=== PATIENT | female | born 1955 | race Caucasian/White ===

== ENCOUNTER → 2016-05-17 | Outpatient (CLI) | payer BC | END | disposition home or self-care (01) | LOC: C.PAPS 09:32 | PROVIDERS: ATTEND Obstetrics & Gynecology | DX: Z01.419 Encounter for gynecological examination (general) (routine) without abnormal findings (principal) ==

== ENCOUNTER → 2016-05-17 | Outpatient (CLI) | payer BC | END | disposition home or self-care (01) | LOC: C.LAB1850 15:42 | PROVIDERS: ATTEND Obstetrics & Gynecology | DX: E55.9 Vitamin D deficiency, unspecified (principal) ==

== ENCOUNTER → 2016-06-15 | Outpatient (CLI) | payer BC ==
--- NOTE | 2016-06-16 13:18 | MAMMOGRAPHY REPORT ---
BILATERAL DIGITAL SCREENING MAMMOGRAM TOMOSYNTHESIS WITH CAD: 06/15/2016 CLINICAL HISTORY: Routine screening. Patient has no complaints. TECHNIQUE: Breast tomosynthesis in addition to standard 2D mammography was performed. Current study was also evaluated with a Computer Aided Detection (CAD) system. COMPARISON: Comparison is made to exams dated: 05/16/2015 mammogram, 07/10/2014 mammogram, 07/09/2013 [facility] mogram, 05/18/2012 mammogram, and 05/17/2011 mammogram. BREAST COMPOSITION: The tissue of both breasts is heterogeneously dense, which may obscure small ma sses. FINDINGS: There is an incompletely visualized 5 mm nodular asymmetry in the far posterior left [address], only seen on the MLO view. The corresponding tomosynthesis images do not definitely differentia te between a possible mass versus overlapping tissue. Further evaluation with spot compression nika synthesis views and possibly ultrasound are recommended. There are scattered benign-appearing rounded and rim calcifications and mild vascular calcifications in the breasts. Stable asymmetry in the inferior right breast. No other suspicious mass, [employer] architect ural distortion or cluster of microcalcifications is seen. IMPRESSION: ACR BI-RADS CATEGORY 0: INCOMPLETE EVALUATION: NEED ADDITIONAL IMAGING EVALUATION The incompletely visualized 5 mm nodular asymmetry in the far posterior, inferior left breast needs additional evaluation. The patient will be called to schedule an appointment. Approximately 10% of breast cancers are not detected with mammography. A negative mammographic repor t should not delay biopsy if a clinically suggestive mass is present. Makenzie Bolden M.D. ay/:06/15/2016 16:49:51 Billing Coordinator: Winter ADAN(Saloni)(Rosaura), [facility] letter sent: Addl Imaging 0 BI-RADS Code: ACR BI-RADS Category 0: Incomplete Evaluation: Need Additional Imaging Evaluation
== END | disposition home or self-care (01) ==
LOC: C.MAMM 13:06
PROVIDERS: ATTEND Obstetrics & Gynecology
DX: Z12.31 Encounter for screening mammogram for malignant neoplasm of breast (principal); R92.8 Other abnormal and inconclusive findings on diagnostic imaging of breast

== ENCOUNTER → 2016-06-24 | Outpatient (CLI) | payer BC ==
--- NOTE | 2016-06-24 13:07 | MAMMOGRAPHY REPORT ---
UNILATERAL LEFT DIGITAL DIAGNOSTIC MAMMOGRAM TOMOSYNTHESIS AND TARGETED LEFT ULTRASOUND: 06/24/2016 CLINICAL HISTORY: Callback from screening mammogram for left breast asymmetry. TECHNIQUE: Breast tomosynthesis in addition to standard 2D mammography was performed. Spot sirisha mariluz left MLO 2-D and tomosynthesis images were obtained. COMPARISON: Comparison is made to exams dated: 06/15/2016 mammogram - [facility], mammogram, 07/10/2014 mammogram, 07/09/2013 mammogram, 05/18/2012 mammogram, and 05/17/2011 mammogr am. BREAST COMPOSITION: The tissue of the left breast is heterogeneously dense, which may obscure small masses. FINDINGS: The previously described asymmetry seen within the left posterior breast on the MLO view has the appearance of normal fibroglandular tissue on the additional tomosynthesis spot compression images, and appears similar to prior exams including the July 2013 exam. No discrete mammographic m ass is noted in this region on the additional views. Targeted ultrasound was performed of the left breast at 3:00, 9:00, and subareolar breast, in the re gion of the mammographic asymmetry seen on one view only. In the left breast at 9:00, 4 cm from the nipple, there is an oval anechoic benign simple cyst which measures 7 x 5 mm. Another anechoic fadumo ign simple cyst measuring 4 x 3 mm is seen within the left breast at 9:00, 7 cm from the nipple. No suspicious masses or other suspicious sonographic abnormalities are evident. During the ultrasound exam, the patient reports intermittent tenderness in the left lateral breast at 3:00; no suspicious findings are seen in this region. IMPRESSION: ACR BI-RADS CATEGORY 2: BENIGN, TARGETED ULTRASOUND ACR BI-RADS CATEGORY 2: BENIGN The left breast asymmetry effaces to a baseline appearance on the additional views, without correspo nding sonographic abnormality evident. The asymmetry is benign and compatible with normal fibroglan dular tissue. There is no mammographic or targeted sonographic evidence of malignancy. A 1 year scre ening mammogram is recommended. Also recommend clinical follow-up for intermittent left lateral cortez ast tenderness. The patient has been verbally notified of the results. Approximately 10% of breast cancers are not detected with mammography. A negative mammographic repor t should not delay biopsy if a clinically suggestive mass is present. Vashti Dejesus M.D. ah/:06/24/2016 11:29:17 Carbide Die Maker: Fior WEBSTER)(Rosaura), [facility] letter sent: Normal 1/2 BI-RADS Code: ACR BI-RADS Category 2: Benign Ultrasound BI-RADS: ACR BI-RADS Category 2: Benign
== END | disposition home or self-care (01) ==
LOC: C.MAMM 10:47
PROVIDERS: ATTEND Obstetrics & Gynecology
DX: N64.89 Other specified disorders of breast (principal)